=== PATIENT | female | born 2005 | race Caucasian/White ===

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

== ENCOUNTER 2024-11-14 22:53 | Emergency (ER) | payer OTHER ==
[2024-11-14 22:57] VITALS: RESP 18
--- NOTE | 2024-11-14 23:32 | ED ---
General Adult HPI - General Chief complaint: Vaginal Bleeding Stated complaint: Vag Bleeding, 13 Weeks Time Seen by Provider: 11/14/24 23:06 Source: patient Mode of arrival: ambulatory Limitations: no limitations - History of Present Illness Initial comments: Patient is a 19-year-old female presenting today for vaginal bleeding. Currently G1, P0 13 weeks last menstrual period was July 30. States that she was sitting in bed with her boyfriend when she began to feel wetness in her underwear. She looked and saw a small amount of light red blood. She states she has been wearing 1 pad since this started about 1 hour prior to arr ival. Denies passage of clots. Denies any pain. Denies fevers, chills, lightheadedness, shortness of breath, chest pain, nausea, vomiting, dysuria, urinary frequency, vaginal discharge. States she does see high school science teacher due to history of seizures. Had an ultrasound done at her high school science teacher's office this morning. Denies history of bleeding disorders. - Related Data Home Medications Medication Instructions Recorded Confirmed Montelukast Chew [Singulair Chew] 5 mg PO DAILY 11/28/14 01/21/19 Ibuprofen Oral Susp [Motrin Oral 200 mg PO DAILY PRN 07/16/18 01/21/19 Susp] acetaZOLAMIDE [Diamox] 125 mg PO BID PRN 07/16/18 01/21/19 diazePAM [Diastat] 12.5 mg RECTAL DIRECTED PRN 07/16/18 01/21/19 lamoTRIgine [LaMICtal] 150 mg PO BID 07/16/18 01/21/19 Previous Rx's Medication Instructions Recorded Lidocaine 5% Oint [Xylocaine 5% 1 applic TOPICAL QID PRN #30 gm 10/30/21 Oint] Naproxen 20 ml PO BID PRN #500 ml 10/30/21 Allergies Allergy/AdvReac Type Severity Reaction Status Date / Time Fish Containing Products Allergy Unknown Verified 10/30/21 07:14 Penicillins Allergy Rash/Hives Verified 10/30/21 07:14 Sulfa (Sulfonamide Allergy Rash/Hives Verified 10/30/21 07:14 Antibiotics) tomato Allergy Unknown Verified 10/30/21 07:14 codeine AdvReac Nausea & Verified 10/30/21 07:14 Vomiting tramadol AdvReac seizures Verified 10/30/21 07:14 Review of Systems ROS Statement: Those systems with pertinent positive or pertinent negative responses have been documented in the HPI. ROS Other: All systems not noted in ROS Statement are negative. Past Medical History Past Medical History: Asthma, Seizure Disorder History of Any Multi-Drug Resistant Organisms: None Reported Past Surgical History: Ear Surgery Additional Past Surgical History / Comment(s): tubes placed in ears. Past Psychological History: Anxiety, PTSD Smoking Status: Never smoker Past Alcohol Use History: None Reported Past Drug Use History: None Reported General Exam - General Exam Comments Initial Comments: PE: CONSTITUTIONAL: No apparent distress, well appearing SKIN: Warm, dry, no jaundice, hives or petechiae EYES: Pupils are equally round, extraocular movements intact without nystagmus, clear conjunctiva, non-icteric sclera HENT: Normocephalic, atraumatic, moist mucus membranes, oropharynx clear without exudates NECK: , Full range of motion, normal appearance PULMONARY: Clear to auscultation without wheezes, rhonchi, or rales, normal excursion, no accessory muscle use and no stridor CARDIOVASCULAR: Regular rate, rhythm, normal S1 and S2. No appreciated murmurs, rubs or gallops. Strong radial pulses with intact distal perfusion. No lower extremity edema GASTROINTESTINAL: Soft, active bowel sounds throughout, non-tender, non- distended, no palpable masses, no rebound or guarding. No hepatosplenomegaly GENITOURINARY: MUSCULOSKELETAL: Extremities have no gross deformity, no edema, redness, or swelling. NEUROLOGIC:_a/o x 3, GCS 15, normal mentation and speech. Moves all extremities x 4 without motor or sensory deficit PSYCHIATRIC:_normal mood and affect, thought process is clear and linear Limitations: no limitations Course Vital Signs 11/14/24 11/15/24 22:54 02:24 Temperature 97.8 F 97.7 F Pulse Rate 118 H 91 Respiratory 18 18 Rate Blood Pressure 118/69 116/63 O2 Sat by Pulse 97 98 Oximetry Medical Decision Making - Medical Decision Making Was pt. sent in by a medical professional or institution (, PA, COMMERCIAL JOURNEY[employer]ICIAN, urgent care, hospital, or [facility]...) When possible be specific @ -No Did you speak to anyone other than the patient for history (EMS, parent, family, police, friend...)? What history was obtained from this source @ -No Did you review nursing and triage notes (agree or disagree)? Why? @ -I reviewed and agree with nursing and triage notes Differential Diagnosis (chest pain, altered mental status, abdominal pain women, abdominal pain men, vaginal bleeding, weakness, fever, dyspnea, syncope, headache, dizziness, GI bleed, back pain, seizure, CVA, palpatations, mental health, musculoskeletal)? @Differential Vaginal Bleeding: Spontaneous , threatened , molar , ectopic , bloody show, incompetent cervix, abruptioplacenta, placenta previa, uterine rupture, dysfunctional uterine bleeding, hemorrhage, uterine fibroids, this is not meant to be an all-inclusive list. EKG interpreted by me (3pts min.). @ -As above X-rays interpreted by me (1pt min.). @ -None done CT interpreted by me (1pt min.). @ -None done U/S interpreted by me (1pt. min.). @ Personally reviewed US, shows single live intrauterine fetus, HR measured at 140 bpm, I agree with radiologist interpretation What testing was considered but not performed or refused? (CT, X-rays, U/S, labs)? Why? @ -None What meds were considered but not given or refused? Why? @ -None Did you discuss the management of the patient with other professionals (professionals i.e. , PA, COMMERCIAL JOURNEYMAN ELECTRICIAN, lab, RT, psych nurse, criminal justice social worker, performance solutions specialist, teacher, property disposal officer, home health care case manager)? Give summary @ -No Was smoking cessation discussed for >3mins.? @ -No Was critical care preformed (if so, how long)? @ -No Were there social determinants of health that impacted care today? How? (Homelessness, low income, unemployed, alcoholism, drug addiction, transportation, low edu. Level, literacy, decrease access to med. care, senior living, rehab)? @ -No Was there de-escalation of care discussed even if they declined (Discuss DNR or withdrawal of care, Hospice)? @ -No What co-morbidities impacted this encounter? (DM, HTN, Smoking, COPD, CAD, Cancer, CVA, ARF, Chemo, Hep., AIDS, mental health diagnosis, sleep apnea, morbid obesity)? @Seizure disorder/ high risk Was patient admitted / discharged? Hospital course, mention meds given and route, prescriptions, significant lab abnormalities, going to OR and other pertinent info. @Discharged- This is a pleasant 19-year-old female, previously healthy, G1, P0 13 weeks presenting today for vaginal bleeding in . On assessment patient is well-appearing in no acute distress. Vital signs in arrival significant for mild tachycardia though of note on my assessment patient and her boyfriend are very tearful out of concern for their baby. Physical exam is overall benign. Plan for transvaginal ultrasound, type and cross, hCG level UA CBC, CMP. Labs are significant for hemoglobin 11.3, prior was drawn on 01/11/2024, was 12.6 at that point, I suspect anemia secondary to as patient has not reported a significant amount of blood loss, otherwise labs reassuring. Ultrasound showed no subchorionic hemorrhage and shows a single live intrauterine fetus measuring 13 weeks 2 days gestation. Updated pt to findings. Of note pelvic exam was offered however deferred by pt. Pt is comfortably with discharge home at this point. Discussed w/ pt remaining on "pelvic rest" until see by her OB. Pt agreeble and understanding. In my medical judgment there is currently no evidence of an immediate life- threatening or surgical condition. Discharge is therefore indicated at this time. Discharge treatment instructions, follow up instructions, and appropriate emergency department return precautions were discussed with the patient and/or medical decision maker. Patient and/or medical decision maker expressed understanding of and agreed with the treatment plan, follow up instructions, and emergency department return precaution. All patient's and/or medical decision maker's questions were answered. The patient was instructed to return to the ED for any changes in symptoms, persistent symptoms, inability to obtain proper follow-up or for any further concerns. Patient received verbal and written instructions for this condition. Undiagnosed new problem with uncertain prognosis? @ -No Drug Therapy requiring intensive monitoring for toxicity (Heparin, Nitro, Insulin, Cardizem)? @ -No Were any procedures done? @ -No Diagnosis/symptom? @ Vaginal bleeding in Acute, or Chronic, or Acute on Chronic? acute Uncomplicated (without systemic symptoms) or Complicated (systemic symptoms)? @uncomplicated Side effects of treatment? @ -No Exacerbation, Progression, or Severe Exacerbation? @ -No - Lab Data Result diagrams: 11/14/24 23:25 04/24/25 23:25 Lab Results 11/14/24 11/14/24 11/14/24 Range/Units 23:25 23:25 23:25 WBC 5.91 (4.50-10.00) 10*3/uL RBC 3.84 L (4.10-5.20) 10*6/uL Hgb 11.3 L (12.0-15.0) g/dL Hct 33.3 L (37.2-46.3) % MCV 86.7 (80.0-97.0) fL MCH 29.4 (27.0-32.0) pg MCHC 33.9 (32.0-37.0) g/dL Plt Count 114 L (140-440) 10*3/uL MPV 11.4 (9.5-12.2) fL Immature Gran % (Auto) 0.3 % Neutrophils % 64.1 % Lymphocytes % 27.2 % Monocytes % 6.9 % Eosinophils % 1.2 % Basophils % 0.3 % Immature Gran # 0.02 (0.00-0.04) 10*3/uL Neutrophils # 3.78 (1.80-7.70) 10*3/uL Lymphocytes # 1.61 (0.90-5.00) 10*3/uL Monocytes # 0.41 (0.20-1.00) 10*3/uL Eosinophils # 0.07 (0.04-0.35) 10*3/uL Basophils # 0.02 (0.00-0.10) 10*3/uL Immature Plt Fraction 3.4 (1.1-6.1) % PT 9.8 L (10.0-12.5) sec INR 0.9 (<1.2) APTT 21.8 L (22.0-30.0) sec Sodium 135 L (137-145) mmol/L Potassium 3.6 (3.5-5.1) mmol/L Chloride 102 (98-107) mmol/L Carbon Dioxide 22 (22-30) mmol/L Anion Gap 11 mmol/L BUN 13 (7-17) mg/dL Creatinine 0.60 (0.52-1.04) mg/dL Est GFR (CKD-EPI)AfAm >90 (>60 ml/min/1.73 sqM) Est GFR (CKD-EPI)NonAf >90 (>60 ml/min/1.73 sqM) Glucose 107 H (74-99) mg/dL Calcium 9.6 (8.4-10.2) mg/dL Total Bilirubin 0.3 (0.2-1.3) mg/dL AST 19 (14-36) U/L ALT 15 (4-34) U/L Alkaline Phosphatase 56 (38-126) U/L Total Protein 6.4 (6.3-8.2) g/dL Albumin 3.8 (3.5-5.0) g/dL HCG, Quant 90748.7 mIU/mL Urine Color Urine Appearance (Clear) Urine pH (5.0-8.0) Ur Specific [place] (1.001-1.035) Urine Protein (Negative) Urine Glucose (UA) (Negative) Urine Ketones (Negative) Urine Blood (Negative) Urine Nitrite (Negative) Urine Bilirubin (Negative) Urine Urobilinogen (<2.0) mg/dL Ur Leukocyte Esterase (Negative) Urine RBC (0-5) /hpf Ur Squamous Epith Cells (0-4) /hpf Urine Mucus (None) /hpf Blood Type Blood Type Confirm Blood Type Recheck Bld Type Recheck Status Antibody Screen Spec Expiration Date 11/14/24 11/14/24 11/14/24 Range/Units 23:25 23:30 23:43 WBC (4.50-10.00) 10*3/uL RBC (4.10-5.20) 10*6/uL Hgb (12.0-15.0) g/dL Hct (37.2-46.3) % MCV (80.0-97.0) fL MCH (27.0-32.0) pg MCHC (32.0-37.0) g/dL Plt Count (140-440) 10*3/uL MPV (9.5-12.2) fL Immature Gran % (Auto) % Neutrophils % % Lymphocytes % % Monocytes % % Eosinophils % % Basophils % % Immature Gran # (0.00-0.04) 10*3/uL Neutrophils # (1.80-7.70) 10*3/uL Lymphocytes # (0.90-5.00) 10*3/uL Monocytes # (0.20-1.00) 10*3/uL Eosinophils # (0.04-0.35) 10*3/uL Basophils # (0.00-0.10) 10*3/uL Immature Plt Fraction (1.1-6.1) % PT (10.0-12.5) sec INR (<1.2) APTT (22.0-30.0) sec Sodium (137-145) mmol/L Potassium (3.5-5.1) mmol/L Chloride (98-107) mmol/L Carbon Dioxide (22-30) mmol/L Anion Gap mmol/L BUN (7-17) mg/dL Creatinine (0.52-1.04) mg/dL Est GFR (CKD-EPI)AfAm (>60 ml/min/1.73 sqM) Est GFR (CKD-EPI)NonAf (>60 ml/min/1.73 sqM) Glucose (74-99) mg/dL Calcium (8.4-10.2) mg/dL Total Bilirubin (0.2-1.3) mg/dL AST (14-36) U/L ALT (4-34) U/L Alkaline Phosphatase (38-126) U/L Total Protein (6.3-8.2) g/dL Albumin (3.5-5.0) g/dL HCG, Quant mIU/mL Urine Color Light Red Urine Appearance Clear (Clear) Urine pH 6.0 (5.0-8.0) Ur Specific [place] 1.028 (1.001-1.035) Urine Protein Trace H (Negative) Urine Glucose (UA) Negative (Negative) Urine Ketones Negative (Negative) Urine Blood Large H (Negative) Urine Nitrite Negative (Negative) Urine Bilirubin Negative (Negative) Urine Urobilinogen <2.0 (<2.0) mg/dL Ur Leukocyte Esterase Negative (Negative) Urine RBC >182 H (0-5) /hpf Ur Squamous Epith Cells 1 (0-4) /hpf Urine Mucus Rare H (None) /hpf Blood Type A Positive Blood Type Confirm A Positive Blood Type Recheck No Previous Record Bld Type Recheck Status CABO Indicated Antibody Screen NEGATIVE Spec Expiration Date 11/17/2024 - 2324 Disposition Clinical Impression: Vaginal bleeding during Disposition: HOME SELF-CARE Condition: Good Instructions (If sedation given, give patient instructions): Pelvic Rest (ED) Additional Instructions: Every disease is a spectrum and a small chance still exists that a serious condition could develop, for this reason, please monitor yourself closely for new, changing or worsening symptoms, symptoms that persist beyond 48 hours, bleeding through more than 1 pad an hour for greater than 2 hours, new or severe lower abdominal pain, fevers, vaginal discharge, lightheadedness, dizziness or shortness of breath fever, inability to tolerate/keep down fluids or your medications, inability to follow up with outpatient providers as instructed and should you experience these symptoms or should you have any further concerns for your wellbeing please return to the ED or call 911 immediately. Please go on pelvic rest until you see your wholesale parts salesperson. This means nothing inserted intravaginally, no vaginal intercourse no tampons, no douching etc. PLEASE call your primary care physician as soon as possible to arrange / discuss plan for followup appointment. Appointment in the next 1-3 days is strongly encouraged if possible. Please call your wholesale parts salesperson's office tomorrow morning and let them know you are in the emergency department and discuss a follow-up visit within 1 week. PLEASE let us know here before you leave if there is anything further we can do to be of any assistance. Take care and feel Better! Is patient prescribed a controlled substance at d/c from ED?: No Referrals: None,Stated [Primary Care Provider] - 1-2 days
[2024-11-14 23:44] LABS: Basophils # (A) 0.02 10*3/uL (0.00-0.10); Basophils % (A) 0.3 %; Eosinophils # (A) 0.07 10*3/uL (0.04-0.35); Eosinophils % (A) 1.2 %; HCT 33.3 % (37.2-46.3); HGB 11.3 g/dL (12.0-15.0); Immature Platelet Fraction 3.4 % (1.1-6.1); Lymphocytes # (A) 1.61 10*3/uL (0.90-5.00); Lymphocytes % (A) 27.2 %; MCH 29.4 pg (27.0-32.0); MCHC 33.9 g/dL (32.0-37.0); MCV 86.7 fL (80.0-97.0); Mean Platelet Volume 11.4 fL (9.5-12.2); Monocytes # (A) 0.41 10*3/uL (0.20-1.00); Monocytes % (A) 6.9 %; Neutrophils # (A) 3.78 10*3/uL (1.80-7.70); Neutrophils % (A) 64.1 %; Platelet Count 114 10*3/uL (140-440); RBC 3.84 10*6/uL (4.10-5.20); RDW 12.6 % (11.5-14.5); WBC 5.91 10*3/uL (4.50-10.00)
[2024-11-14] MEDS: SODIUM CHLORIDE 0.9% 1,000 ML IV ONE (23:45)
[2024-11-15 00:06] LABS: ALT 15 U/L (4-34); AST 19 U/L (14-36); African American GFR (CKD) >90 (>60 ml/min/1.73 sqM); Albumin 3.8 g/dL (3.5-5.0); Alkaline Phosphatase 56 U/L (38-126); Anion Gap 11 mmol/L; Blood Urea Nitrogen 13 mg/dL (7-17); Calcium 9.6 mg/dL (8.4-10.2); Carbon Dioxide 22 mmol/L (22-30); Chloride 102 mmol/L (98-107); Glucose 107 mg/dL (74-99); Non-African American GFR(CKD) >90 (>60 ml/min/1.73 sqM); Potassium 3.6 mmol/L (3.5-5.1); Sodium 135 mmol/L (137-145); Total Bilirubin 0.3 mg/dL (0.2-1.3); Total Protein 6.4 g/dL (6.3-8.2)
[2024-11-15 00:28] LABS: Appearance,Urine Clear (Clear); Bilirubin,Urine Negative (Negative); Blood,Urine Large (Negative); Color,Urine Light Red; Glucose,Urine (UA) Negative (Negative); Ketones,Urine Negative (Negative); Leukocyte Esterase,Urine Negative (Negative); Mucus,Urine Rare /hpf; Nitrite,Urine Negative (Negative); Protein,Urine Trace (Negative); RBC,Urine >182 /hpf (0-5); Specific Gravity,Urine 1.028 (1.001-1.035); Squamous Epithelial Cell,Urine 1 /hpf (0-4); Urobilinogen,Urine <2.0 mg/dL (<2.0)
[2024-11-15 00:32] LABS: INR 0.9 (<1.2); Prothrombin Time 9.8 sec (10.0-12.5)
[2024-11-15 01:00] LABS: Partial Thromboplastin Time 21.8 sec (22.0-30.0)
[2024-11-15 01:52] LABS: HCG,Quantitative Serum 87584.7 mIU/mL
--- NOTE | 2024-11-15 02:09 | US ---
EXAM: US First Trimester , Transabdominal CLINICAL HISTORY: US Reason: vaginal bleeding 13 weeks TECHNIQUE: Real-time transabdominal obstetrical ultrasound of the maternal pelvis and a first trimester with image documentation. COMPARISON: No relevant prior studies available. FINDINGS: Gestation: There is a single intrauterine fetus. heart rate 140 bpm. pole crown-rump length measures 7.04 cm consistent with 13 weeks 2 days gestation. LIANE: The estimated date of delivery is May 21, 2025. Placenta/amniotic fluid: The placenta is anterior and grade 1. Amniotic fluid appears normal. No subchorionic hemorrhage is identified. Uterus/cervix: The uterus measures 12 x 6.5 x 9 cm. No myometrial mass. Ovaries: The right ovary measures 2.2 x 3.2 x 1.8 cm. No mass. The left ovary is not visible. Free fluid: No free fluid in the cul-de-sac or adnexa. IMPRESSION: Single, live intrauterine fetus consistent with 13 weeks 2 days gestation. The estimated date delivery is May 21, 2025.
[2024-11-15 02:27] VITALS: BP 116/63; PULSE 91; TEMP 97.7
== END 2024-11-15 02:26 | disposition home or self-care (01) ==
LOC: EC 22:53
DX: O20.9 Hemorrhage in early pregnancy, unspecified (principal); O99.341 Other mental disorders complicating pregnancy, first trimester; G40.909 Epilepsy, unspecified, not intractable, without status epilepticus; Z91.013 Allergy to seafood; Z91.018 Allergy to other foods; Z88.2 Allergy status to sulfonamides; Z88.0 Allergy status to penicillin; Z88.5 Allergy status to narcotic agent; Z88.6 Allergy status to analgesic agent; Z3A.13 13 weeks gestation of pregnancy
CPT/HCPCS: 36415; 76801; 80053; 81001; 84702; 85025; 85610; 85730; 86850; 86900; 86901; 96360; 99284